=== PATIENT | female | born 1985 | race Caucasian/White ===

== ENCOUNTER → 2017-07-12 | Outpatient (CLI) | payer BC | LOC: BMCIMAGING 12:23 → EDSTATUS 12:23 | PROVIDERS: ATTEND Internal Medicine | DX: J40 Bronchitis, not specified as acute or chronic (principal) ==

== ENCOUNTER → 2018-01-23 | Outpatient (CLI) | payer BC | LOC: BMCIMAGING 13:43 | PROVIDERS: ATTEND Internal Medicine | DX: Z01.811 Encounter for preprocedural respiratory examination (principal) ==

== ENCOUNTER 2018-02-25 22:11 | Emergency (ER) | payer BC ==
[2018-02-25] MEDS ORDERED: NS 1,000 ML IV ONE (22:29)
--- NOTE | 2018-02-25 22:33 | EDPHY ---
H & P Stated Complaint: WEAKNESS"POSS INFECT SX SITE HAIRLINE INCISION" Time Seen by Provider: 02/25/18 22:23 HPI/ROS: CHIEF COMPLAINT: Possible wound infection wound dehiscence HISTORY OF PRESENT ILLNESS: 32-year-old transgender female, biologic male, postop day 2.5 weeks post facial feminization surgery , performed in [place], [place], presents to the ER concerned about possible wound dehiscence and infection. Notes new discharge dehiscence from the hairline wound.. Patient saw her surgery postop day 7 sutures removed and is granulating appropriately prior to returning to [place]. New discharge in dehiscence present for the past few days. No fever no chills. No nausea no vomiting. No flu-like symptoms. PRIMARY CARE PROVIDER: REVIEW OF SYSTEMS: 10 systems reviewed and negative with the exception of the elements mentioned in the history of present illness PAST MEDICAL & SURGICAL HISTORY: post operative 2.5 weeks post facial feminization surgery. Diabetes. Hypothyroid. Biologic male. SOCIAL HISTORY:Nonsmoker. PHYSICAL EXAM (Prior to examination, patient consented to physical exam, hands were washed and my usual and customary physical exam procedures followed) 1) GENERAL: Well-developed, well-nourished, alert and oriented. Appears nontoxic.. 2) HEAD: Normocephalic, dehiscence numerous locations along the hairline incision is noted. Purulence at multiple locations is noted. No foul smell. 3) HEENT: Pupils equal, round, reactive to light bilaterally. Sclera anicteric. 4) NECK: Full range of motion, no meningeal signs. 5) LUNGS: Clear auscultation bilaterally, no wheezes, no rhonchi, no retractions. 6) HEART: Regular rate and rhythm, no murmur, no heave, no gallop. 7) ABDOMEN: No guarding, no rebound, no focal tenderness, negative McBurney's, negative Guzman's, negative Rovsing's, negative peritoneal sign, 8) MUSCULOSKELETAL: Moving all extremities, no focal areas of tenderness, no obvious trauma. No peripheral edema or discoloration. 9) BACK: No CVA tenderness, no midline vertebral tenderness, no fluctuance, no step-off, no obvious trauma, no visual or palpable abnormality. 10) SKIN: No rash, no petechiae. 11) Psychiatric: Patient is oriented X 3, there is no agitation. DIFFERENTIAL DIAGNOSIS: In no particular order including but not limited to wound dehiscence, wound infection, cellulitis - Personal History LMP (Females 10-55): Unknown Current Tetanus Diphtheria and Acellular Pertussis (TDAP): Yes - Medical/Surgical History Hx Asthma: No Hx Chronic Respiratory Disease: No Hx Diabetes: Yes Hx Cardiac Disease: No Hx Renal Disease: No Hx Cirrhosis: No Hx Alcoholism: No Hx HIV/AIDS: No Hx Splenectomy or Spleen Trauma: No Other PMH: BORDERLINE DM, HYPOTHYROIDISM, COSMETIC FACIAL SX, TONSIL - Social History Smoking Status: Never smoked Constitutional: Initial Vital Signs Temperature (C) 36.5 C 02/25/18 22:17 Heart Rate 120 H 02/25/18 22:17 Respiratory Rate 18 02/25/18 22:17 Blood Pressure 143/99 H 02/25/18 22:17 O2 Sat (%) 97 02/25/18 22:17 O2 Delivery Mode Room Air Allergies/Adverse Reactions: No Known Allergies Allergy (Unverified 02/25/18 22:15) Home Medications: Medication Instructions Recorded Cephalexin [Keflex] 500 mg PO TID 7 Days cap 02/25/18 Metformin 1000 mg 02/25/18 Prozac 10 MG (*) 02/25/18 Synthroid 02/25/18 Medical Decision Making ED Course/Re-evaluation: 10:30 p.m.: Patient noted to be tachycardic. Will obtain laboratory studies, administer IV fluids. She is noted to have wound dehiscence and signs of infection. She has not been in contact with her surgeon in [place]. Patient has received IV fluids, re-evaluated with serial exams. Heart rate in the 90s. Afebrile. Patient also seen examined by Dr. Keny Alvarado in the ER. - Data Points Laboratory Results: Laboratory Results 02/25/18 22:50 02/25/18 22:50 02/25/18 02/25/18 22:50 22:50 WBC 13.75 10^3/uL H 10^3/uL (3.80-9.50) RBC 4.46 10^6/uL 10^6/uL (4.18-5.33) Hgb 12.4 g/dL L g/dL (12.6-16.3) Hct 36.7 % L % (38.0-47.0) MCV 82.3 fL fL (81.5-99.8) MCH 27.8 pg L pg (27.9-34.1) MCHC 33.8 g/dL g/dL (32.4-36.7) RDW 13.2 % % (11.5-15.2) Plt Count 448 10^3/uL H 10^3/uL (150-400) MPV 10.5 fL fL (8.7-11.7) Neut % (Auto) 64.4 % % (39.3-74.2) Lymph % (Auto) 24.4 % % (15.0-45.0) [place] % (Auto) 6.5 % % (4.5-13.0) Eos % (Auto) 3.5 % % (0.6-7.6) Baso % (Auto) 0.9 % % (0.3-1.7) Nucleat RBC Rel Count 0.0 % % (0.0-0.2) Absolute Neuts (auto) 8.86 10^3/uL H 10^3/uL (1.70-6.50) Absolute Lymphs (auto) 3.35 10^3/uL H 10^3/uL (1.00-3.00) Absolute Monos (auto) 0.89 10^3/uL H 10^3/uL (0.30-0.80) Absolute Eos (auto) 0.48 10^3/uL H 10^3/uL (0.03-0.40) Absolute Basos (auto) 0.13 10^3/uL H 10^3/uL (0.02-0.10) Absolute Nucleated RBC 0.00 10^3/uL 10^3/uL (0-0.01) Immature Gran % 0.3 % % (0.0-1.1) Immature Gran # 0.04 10^3/uL 10^3/uL (0.00-0.10) Sodium 139 mEq/L mEq/L (135-145) Potassium 4.4 mEq/L mEq/L (3.5-5.2) Chloride 103 mEq/L mEq/L (97-110) Carbon Dioxide 21 mEq/l L mEq/l (22-31) Anion Gap 15 mEq/L H mEq/L (6-14) BUN 14 mg/dL mg/dL (7-23) Creatinine 0.7 mg/dL mg/dL (0.6-1.0) Estimated GFR > 60 Glucose 199 mg/dL H mg/dL (70-100) Calcium 10.1 mg/dL mg/dL (8.5-10.4) Medications Given: Discontinued Medications Cephalexin HCl (Keflex) 500 mg PO EDNOW ONE PRN Reason: Protocol Stop: 02/25/18 23:07 Last Admin: 02/25/18 23:12 Dose: 500 mg Sodium Chloride (Ns) 1,000 mls @ 0 mls/hr IV ONCE ONE PRN Reason: Wide Open Stop: 02/25/18 22:30 Last Admin: 02/25/18 22:48 Dose: 1,000 mls Departure - Departure Disposition: Home, Routine, Self-Care Clinical Impression: Wound dehiscence, Wound infection after surgery Condition: Good Instructions: Cephalexin (By mouth), Wound Infection (DC), Wound Dehiscence (ED ) Additional Instructions: Return to the ER if you develop fevers, nausea, vomiting or any other symptoms that concern you Referrals: Chago Xavier JR, MD [Medical Doctor] - 1-2 days without fail (Dr. Adithya Xavier and his partners are plastic surgeons) Prescriptions: Cephalexin [Keflex] 500 mg PO TID 7 Days cap
[2018-02-25 23:01] LABS: PLATELET COUNT 448 10^3/uL (150-400)
[2018-02-25] MEDS ORDERED: CEPHALEXIN 500 MG CAP PO ONE (23:06)
[2018-02-25] MEDS ORDERED: CEPHALEXIN 500MG PREPACK#4 BTL TAKEHOME ONE (23:26)
[2018-02-25 23:47] VITALS: BP 112/68
== END 2018-02-25 23:45 | disposition home or self-care (01) ==
DX: T81.33XA Disruption of traumatic injury wound repair, initial encounter (principal); E11.9 Type 2 diabetes mellitus without complications; E03.9 Hypothyroidism, unspecified; Y82.8 Other medical devices associated with adverse incidents